=== PATIENT | female | born 1955 | race Caucasian/White ===

== ENCOUNTER 2020-01-29 15:12 | Inpatient (IN) | payer OTHER ==
[~2020-01-29] VITALS: Ht 165.1 cm; Wt 54.4 kg
[2020-01-29 15:19] VITALS: BP 105/61
--- NOTE | 2020-01-29 16:45 | NUR ---
PT STATES THAT SHE HAS HAD RELIEF OF PAIN BUT SHE IS STILL NAUSEATED.
--- NOTE | 2020-01-29 17:33 | NUR ---
PT PROVIDED ICE CHIPS AND SALTINE CRACKERS @ THIS TIME,OLAF GRIER DNP NOTIFIED.
--- NOTE | 2020-01-29 19:16 | NUR ---
Transfer of care from Amy erickson.
--- NOTE | 2020-01-29 20:20 | NUR ---
In to see pt at this time.Pt has left cast noted on left lower and up by knee at this time.Pt has good dorsal pedal pulse at this time and 18 gauge intact in left ac at this time.
[2020-01-29 20:27] VITALS: BP 116/85
[2020-01-29 22:27] VITALS: BP 119/73
--- NOTE | 2020-01-29 22:27 | NUR ---
In to see pt at this time and pt offered snack.
--- NOTE | 2020-01-29 23:04 | NUR ---
Attempted to call report and nurse unable to take pt at this time.
--- NOTE | 2020-01-29 23:50 | NUR ---
Spoke with floor and stated they are unable to take pt at this time.
[2020-01-30] VITALS (13 sets, daily range): BP systolic 92–130; BP diastolic 58–90
--- NOTE | 2020-01-30 00:03 | NUR ---
Pt currently sleeping at this time.
--- NOTE | 2020-01-30 00:35 | NUR ---
Called floor at this time and unable to take pt.
--- NOTE | 2020-01-30 00:55 | NUR ---
Time: 54 A 64 year old F admitted to 5E under services of SHNOA MAR DO Pt. arrived via stretcher from ER. Chief complaint: LEFT TIBIAL FRACTURE. ZULEIMA MACEDO
--- NOTE | 2020-01-30 02:25 | NUR ---
MEDICATED WITH ZOFRAN FOR C/O NAUSEA.
--- NOTE | 2020-01-30 02:30 | NUR ---
MEDICATED WITH MS FOR C/O LEFT LEG PAIN RATED A 6/10.
--- NOTE | 2020-01-30 03:30 | NUR ---
RESTING IN BED; VOICES NO C/O AT THIS TIME. PAIN MEDICATION & NAUSEA MEDICATION APPARENTLY EFFECTIVE.
--- NOTE | 2020-01-30 04:50 | NUR ---
MEDICATED WITH NORCO FOR C/O LEFT LEG PAIN & ALSO C/O BOTTOM OF HER FOOT BURNING RATING HER PAIN A 9/10.
--- NOTE | 2020-01-30 06:00 | NUR ---
PT. STATES JOE HAS HELPED HER PAIN.
[2020-01-30 06:44] LABS: ACT PARTIAL THROMBO TIME 28.5 SECONDS (20.0-32.1)
[2020-01-30 06:49] LABS: BASO % 0.3 % (0.0-1.0); CHLORIDE 111 mmol/L (98-107); EOS # 0.1 10*3/uL (0.0-0.4); EOS % 0.8 % (1.0-4.0); HEMATOCRIT 34.8 % (37.0-47.0); LYMPH # 1.3 10*3/uL (1.3-4.4); LYMPH % 15.5 % (27.0-41.0); MEAN CELL VOLUME 93.5 fl (81.0-99.0); MEAN CORPUSCULAR HGB 30.1 pg (27.0-31.0); MEAN CORPUSCULAR HGB CONC 32.2 g/dl (33.0-37.0); MEAN PLATELET VOLUME 11.6 fl (9.6-12.3); MONO # 0.8 10*3/uL (0.1-1.0); MONO % 9.5 % (3.0-9.0); NEUT # 6.4 10*3/uL (2.3-7.9); NEUT % 73.6 % (47.0-73.0); PLATELET COUNT AUTOMATED 124 10*3/uL (130-400); POTASSIUM 3.6 mmol/L (3.5-5.1); RED BLOOD COUNT 3.72 10*6/uL (4.10-5.10); RED CELL DISTRI WIDTH 12.9 % (0-14.5); SODIUM 143 mmol/L (136-145); WHITE BLOOD COUNT 8.7 10*3/uL (4.8-10.8)
[2020-01-30 07:04] LABS: ALBUMIN 3.4 gm/dl (3.1-4.5); ALKALINE PHOSPHATASE 53 U/L (45-117); BUN 10 mg/dl (7-24); CHOLESTEROL 153 mg/dL (<200); CREATININE 0.61 mg/dL (0.55-1.02); FREE T4 1.05 ng/dl (0.76-1.46); HDL CHOLESTEROL 61 mg/dl (40-60); LDL CHOLESTEROL 83 mg/dL (9-159); SGOT/AST 18 IU/L (3-35); SGPT/ALT 18 U/L (12-78); TOTAL PROTEIN 6.2 gm/dL (6.4-8.2); TRIGLYCERIDES 46 mg/dl (<150); VLDL CHOLESTEROL 9 mg/dL (6-40)
[2020-01-30 07:08] LABS: VITAMIN D, 25-HYDROXY 71.5 ng/mL (30-100)
--- NOTE | 2020-01-30 07:55 | NUR ---
PHYSICAL THERAPY Screen and PT eval recieved will follow thank you Shweta Hammer PT
--- NOTE | 2020-01-30 08:19 | NUR ---
PHYSICAL THERAPY PT sly received and chart reviewed. Pt status post fall w L proximal tibia fracture scheduled for surgery this AM. Will follow as appropriate. Herbert Viveros SPT Shweta Hammer PT
--- NOTE | 2020-01-30 09:00 | NUR ---
Jet Engine Mechanic in to talk to patient. Patient states lives at home with . There are 12 steps in the home. Physician: summer oro Pharmacy: [facility] services: none Patient's level of ADLs: INDEPENDENT Patient has working utilities: all working DME: none Follow-up physician's appointment after d/c: will be made by hospitalist nurse director upon discharge Does patient want to access PORTAL?: no Discharge plan discussed with patient, she states she lives at home with her , she was independent in adls and ambulation until recently. she states she drives. discussed with her having a fracture and having surgery today she may need to consider a short term care home for 5 days of rehab and 24 our care prior to returning home. she declined, stated she would return home and her will help her. also discussed [facility] and educated on the services they provide. she was receptive to this, given choice of companies she chose [facility], will send a referral to [facility] for when patient is discharged. case management will follow. DEEP BUNDY
--- NOTE | 2020-01-30 09:26 | NUR ---
MORPHINE GIVEN FOR C/O LT LEG PAIN, RATES 9/10 ON PAIN SCALE. ZOFRAN GIVEN FOR C/O NAUSEA. WILL MONITOR.
--- NOTE | 2020-01-30 10:30 | NUR ---
MORPHNE AND ZOFRAN EFFECTIVE PER PT.
--- NOTE | 2020-01-30 13:07 | NUR ---
case management faxed home health referral and face to face to Cintia at [facility]
--- NOTE | 2020-01-30 16:46 | NUR ---
PT STILL IN SURGERY.
[2020-01-31] VITALS: BP 111/62
--- NOTE | 2020-01-31 00:39 | NUR ---
NORCO GIVEN FOR COMPLAINTS OF LEFT LEG PAIN RATED 6/10, ACHING. CALL LIGHT IN REACH. WILL MONITOR FOR EFFECTIVENESS.
--- NOTE | 2020-01-31 01:23 | NUR ---
[facility] CALL LIGHT WITHIN REACH.
--- NOTE | 2020-01-31 03:29 | NUR ---
24HR CHART CHECK COMPLETED
--- NOTE | 2020-01-31 04:50 | NUR ---
SLEEPING. NO SXS OF DISTRESS NOTED. RESPERATIONS EASY, UNLABORED, REGULAR ON ROOM AIR. IVF INFUSING WITH EASE. CALL LIGHT IN REACH.
[2020-01-31 08:00] VITALS: BP 123/67
--- NOTE | 2020-01-31 09:55 | NUR ---
PHYSICAL THERAPY PT EVAL completed today on level 5: full eval to follow. Patient with recent ORIF by Dr Turcios and referred for PT eval with orders for NWB, 0-30 degrees ROM and NO SLR'S. Did well on eval and was able to complete bed mobility with mod to max of 1 and complete SPT from bed to bedside commode and then to recliner with mod/max of 1 while maintaining NWB on the LLE. D/C plans are home with retired and she states he is installing stairlift in the home for her and will be completed by sunday so she can get into the home. Would recommend HH PT based on eval today. Also instructed patient on QS's, GS's and ankle pumps today with 100% compliance. thank you for referral Brandee Lucio PT
[2020-01-31 12:00] VITALS: BP 111/62
[2020-01-31 16:00] VITALS: BP 116/58
--- NOTE | 2020-01-31 16:38 | NUR ---
PT LOST IV SITE, INFILTRATED. TRIED TO REACH MATTI HOOD. PT REFUSING NEW IV AFTER 1 ATTEMPT.
[2020-01-31 20:00] VITALS: BP 105/45
--- NOTE | 2020-01-31 20:51 | NUR ---
PT C/O LLE PAIN. MEDICATED W/NORCO PO. PT SITTING IN RECLINER W/LLE IN KNEE IMMOBILIZER. CALL LIGHT IN REACH.
--- NOTE | 2020-01-31 21:50 | NUR ---
PT STATES THAT NORCO WAS EFFECTIVE FOR PAIN RELIEF.
[2020-02-01] VITALS: BP 120/66
--- NOTE | 2020-02-01 00:10 | NUR ---
PT ASSISTED BACK TO BED X2 STAFF W/WALKER. NWB TO LLE MAINTAINED. PT REPOSITIONED IN BED BY STAFF. PILLOW PLACED UNDER LLE. CALL LIGHT IN REACH.
--- NOTE | 2020-02-01 06:36 | NUR ---
PT C/O 07/31 LLE PAIN. MEDICATED W/NORCO PO. PT ASSISTED TO BSC W/WALKER X2 STAFF W/KNEE IMMOBILIZER INTACT.
[2020-02-01 08:00] VITALS: BP 143/82
[2020-02-01 12:00] VITALS: BP 128/68
[2020-02-01 16:00] VITALS: BP 126/65
--- NOTE | 2020-02-01 19:30 | NUR ---
PT C/O LLE PAIN 08/30. MEDICATED W/PO NORCO. PT SITTING UP IN RECLINER CHAIR. JULIO C ABURTO AND SCD ON RLE. KNEE IMMOBILIZER ON LLE AND ELEVATED. CALL LIGHT IN REACH.
[2020-02-01 20:00] VITALS: BP 126/73
--- NOTE | 2020-02-01 20:32 | NUR ---
DR. PENN NOTIFIED OF PT'S C/O CONSTIPATION. T.O. RCVD FOR [place]ACE PO DAILY.
[2020-02-02] VITALS: BP 129/73
--- NOTE | 2020-02-02 01:11 | NUR ---
PT C/O LLE PAIN. MEDICATED W/NORCO PO. PT WANTING TO SLEEP IN RECLINER CHAIR TONITE. CALL LIGHT IN REACH.
--- NOTE | 2020-02-02 02:10 | NUR ---
PO NORCO EFFECTIVE FOR PAIN RELIEF EVIDENCED BY PT RESTING QUIETLY IN RECLINER CHAIR W/EYES CLOSED AND NO S/S OF DISTRESS NOTED. CALL LIGHT IN REACH.
[2020-02-02 08:00] VITALS: BP 139/79
--- NOTE | 2020-02-02 08:35 | NUR ---
PHYSICAL THERAPY Per verbal conversation in hallway with Ortho MD Dr. Turcios regarding RLE. Per MD, No SLR or QS allowed, Ok for ankle pumps. For R knee...PROM ONLY 0-30 degrees. Discussed with PROCESS ANALYST. Shweta Hammer PT
--- NOTE | 2020-02-02 09:00 | NUR ---
case management visits with patient, she states she is a possibly discharge to home today. she states her is installing a chair lift due to her having 12 steps to enter her home, this will be installed this afternoon and she can be discharged to home after that. case management will notify [facility] when patient is discharged. case management will follow
--- NOTE | 2020-02-02 09:15 | NUR ---
NORCO GIVEN FOR C/O LEFT LEG PAIN. RATES 5/10 ON PAIN SCALE. WILL MONITOR.
--- NOTE | 2020-02-02 11:10 | NUR ---
PHYSICAL THERAPY Patient seen this am 1;1 for therapy visit and was sitting up in bedside chair upon therapist arrival. Patient identified by name / and presented with L knee Immobilizer brace. Patient is NWB on L LE and educated on both NWB status / No SLR or Quad sets per Ortho precautions. Patient was very pleasant this morning receiving IV treatment as she performed several sit to stand transfers from low chair surface, CGA x 1. Patient demonstrated slow, steady rise and was able to complete SPT to [facility], use of wh walker standing support, CGA x 1. Patient demonstrated 100% compliance with NWB status L LE and returned to bedside chair with no fatigue. Patient tolerated static standing at bedside x several trials, approx 2 minutes each without c/o and remained in bediside chair semi reclined following treatment with call light, tray table, telephone. Will continue per POC as tolerated, total treatment time 15 minutes. Rakesh Canas, ANTIQUE [employer] MUSEUM MAINTENANCE WORKER
[2020-02-02 12:00] VITALS: BP 117/66
[2020-02-02] MEDS ORDERED: HYDROCODONE-AC1 EAC1 PO (13:36)
[2020-02-02] MEDS ORDERED: VITAMIN D350 MC2 PO (13:36)
[2020-02-02] MEDS ORDERED: ASPIRIN ADULT L81 M2 PO (13:37)
--- NOTE | 2020-02-02 13:59 | NUR ---
case management received a message that patient's stair lift was not being installed until 02/12/20. visited with patient, discussed this and the stair lift is not being installed until 02/12/20. discussed with her that she is discharged today. she stated she would be returning home today and would like an ambulance to transport her home. educated her that this may not be paid for by insurance and she stated she would be able to pay for this. social group worker is working on ambulance transport home
--- NOTE | 2020-02-02 14:10 | NUR ---
LAST TURNER SPOKE WITH [facility]. PATIENT WOULD REQUIRE A PRECERT FOR TRANSPORT. LAST TURNER ATTEMPTED TO SPEAK WITH ANNABELLE MATTHEWS. SHE WENT TO LUNCH. WORK DESIGN QUALITY ENGINEER BYRON STATED AT A 4PM TRANSPORT WOULD BE OKAY. LAST TURNER ARRANGED FOR A 4 PM TRANSPORT FOR THE PATIENT TO RETURN HOME WITH [facility]. LAST TURNER TO FAX DEMOGRAPHICS TO [facility].
--- NOTE | 2020-02-02 14:36 | NUR ---
PHYSICAL THERAPY PATIENT IS BEING DISCHARGED AT 4 PM ACCORDING TO THE CASE MANAGEMENT NOTES. EAN RODRÍGUEZ RANCH SUPERVISOR
--- NOTE | 2020-02-02 15:06 | NUR ---
NORCO GIVEN FOR C/O LT LEG PAIN. RATES 4/10 ON PAIN SCALE. WILL MONITOR.
--- NOTE | 2020-02-02 16:00 | NUR ---
[facility] Discharge instructions reviewed with patient/family. Patient receptive and verbalizes understanding. Follow-up care arranged. Written instructions given to patient/family. BYRON BELLE
--- NOTE | 2020-02-03 07:25 | NUR ---
PHYSICAL THERAPY CO-SIGN I approve of the Physical Therapy notes written above. Shweta Hammer PT
== END 2020-02-02 20:01 | disposition home health service (06) | DRG 493 ==
LOC: ED 15:12 → 5E 17:55 → EDHOLD 17:55 → 5E 22:39
PROVIDERS: Internal Medicine; ADMIT Internal Medicine; ATTEND Internal Medicine
PROC: 0QSH04Z Reposition Left Tibia with Internal Fixation Device, Open Approach (ICD-10-PCS; principal; 2020-01-30)
DX: S82.145A Nondisplaced bicondylar fracture of left tibia, initial encounter for closed fracture (principal); M25.00 Hemarthrosis, unspecified joint; E87.8 Other disorders of electrolyte and fluid balance, not elsewhere classified; R00.0 Tachycardia, unspecified; D64.9 Anemia, unspecified; E83.39 Other disorders of phosphorus metabolism; W18.30XA Fall on same level, unspecified, initial encounter; Y93.89 Activity, other specified; Y92.89 Other specified places as the place of occurrence of the external cause; Y99.8 Other external cause status; Z88.0 Allergy status to penicillin; Z98.51 Tubal ligation status; Z82.3 Family history of stroke; Z83.3 Family history of diabetes mellitus; Z82.49 Family history of ischemic heart disease and other diseases of the circulatory system; Z80.6 Family history of leukemia; Z91.040 Latex allergy status

== ENCOUNTER → 2020-02-13 | Outpatient (CLI) | payer OTHER ==
[~2020-02-13] MED LIST: ASPIRIN ADULT L81 M2 PO; HYDROCODONE-AC1 EAC1 PO; VITAMIN D350 MC2 PO
== END | disposition home or self-care (01) ==
LOC: ORTHO 00:20
PROVIDERS: ATTEND Orthopaedic Surgery
DX: S82.102A Unspecified fracture of upper end of left tibia, initial encounter for closed fracture (principal); X58.XXXA Exposure to other specified factors, initial encounter; Y93.89 Activity, other specified; Y92.89 Other specified places as the place of occurrence of the external cause; Y99.8 Other external cause status

== ENCOUNTER → 2020-03-12 | Outpatient (CLI) | payer OTHER | END | disposition home or self-care (01) | LOC: ORTHO 01:42 | PROVIDERS: ATTEND Orthopaedic Surgery | DX: S82.145D Nondisplaced bicondylar fracture of left tibia, subsequent encounter for closed fracture with routine healing (principal); X58.XXXD Exposure to other specified factors, subsequent encounter ==

== ENCOUNTER → 2020-04-26 | Outpatient (CLI) | payer OTHER | END | disposition home or self-care (01) | LOC: ORTHO 00:21 | PROVIDERS: ATTEND Orthopaedic Surgery | DX: S82.145D Nondisplaced bicondylar fracture of left tibia, subsequent encounter for closed fracture with routine healing (principal); Z98.890 Other specified postprocedural states; X58.XXXD Exposure to other specified factors, subsequent encounter ==

== ENCOUNTER → 2020-05-19 | Outpatient (CLI) | payer OTHER | END | disposition home or self-care (01) | LOC: RAD 13:18 | PROVIDERS: ATTEND Orthopaedic Surgery | DX: M81.0 Age-related osteoporosis without current pathological fracture (principal) ==

== ENCOUNTER → 2020-06-07 | Outpatient (CLI) | payer OTHER | END | disposition home or self-care (01) | LOC: ORTHO 00:21 → RAD 14:29 → ORTHO 14:37 | PROVIDERS: ATTEND Orthopaedic Surgery | DX: S82.145D Nondisplaced bicondylar fracture of left tibia, subsequent encounter for closed fracture with routine healing (principal); X58.XXXD Exposure to other specified factors, subsequent encounter ==

== ENCOUNTER → 2021-02-04 | Outpatient (CLI) | payer OTHER | END | disposition home or self-care (01) | LOC: ORTHO 01:34 | PROVIDERS: ATTEND Orthopaedic Surgery | DX: S82.145D Nondisplaced bicondylar fracture of left tibia, subsequent encounter for closed fracture with routine healing (principal); X58.XXXD Exposure to other specified factors, subsequent encounter ==

== ENCOUNTER → 2022-05-22 | Outpatient (CLI) | payer OTHER | END | disposition home or self-care (01) | LOC: RAD 03:55 | PROVIDERS: ATTEND Orthopaedic Surgery | DX: M81.0 Age-related osteoporosis without current pathological fracture (principal); Z78.0 Asymptomatic menopausal state ==

== ENCOUNTER → 2024-02-08 | Outpatient (CLI) | payer OTHER | END | disposition home or self-care (01) | LOC: ORTHO 04:10 | PROVIDERS: ATTEND Orthopaedic Surgery | DX: M25.862 Other specified joint disorders, left knee (principal); M79.605 Pain in left leg; M81.0 Age-related osteoporosis without current pathological fracture ==

== ENCOUNTER → 2024-06-16 | Outpatient (CLI) | payer OTHER | END | disposition home or self-care (01) | LOC: RAD 09:00 | PROVIDERS: ATTEND Orthopaedic Surgery | DX: Z13.820 Encounter for screening for osteoporosis (principal); M81.0 Age-related osteoporosis without current pathological fracture; Z78.0 Asymptomatic menopausal state ==